=== PATIENT | female | born 1985 ===

== ENCOUNTER 2016-09-06 21:08 | Emergency (ER) | payer OTHER ==
--- NOTE | 2016-09-06 22:53 | ED NURSING NOTES ---
Clinical Report - Nurses [facility] [address] [place] [address] 09/06/2016 21:09 Patient: JOSEP PRESLEY TRIAGE Triage time 21:38 Sep 06 2016. Acuity: LEVEL 4. Chief Complaint: BACK PAIN. 21:44 09/06/16. SEPSIS SCREEN: Sepsis Screen. Negative (no infection suspected/documented). PINKY COMA SCORE: Blanchard Coma Scale: 15- eyes open spontaneously (4); best verbal response- oriented x 4 (5); best motor response- obeys commands (6). --21:44 Dinora Coombs R.N. 21:44 09/06/16. BP: 145/104. HR: 108. RR: 18. O2 saturation: 98%. Temp: 98.4 F. Pain level now 8/10. --21:44 Dinora Coombs R.N. Weight: 95.2 kg stated. Height/Length: 67 inches Per Patient. BMI: 32.9. --21:38 Dinora Coombs R.N. Medications Lantus. --21:39 Dinora Comobs R.N. NovoLog. --21:39 Dinora Coombs R.N. Metformin. --21:39 Dinora Coombs R.N. Gabapentin. --21:39 Dinora Coombs R.N. Medication/allergy information source: the patient. --21:44 Dinora Coombs R.N. Allergies Darvcet. --21:40 Dinora Coombs R.N. Morphine and Related. --21:40 Dinora Coombs R.N. History Arrived by private vehicle. Historian: patient. Accompanied by friend. This started yesterday. ( states slipped on the ice yesterday and injured her mid to lower back, all the way across her back). She has had tingling, (outsides of both legs, left leg is chronic). No history of recent trauma. ( no problems with bowel or bladder control). No numbness, weakness or trouble walking. Treatment JEWELRY MANAGER: Took Tylenol. (1000 mg 6 hr,). PAST MEDICAL HX: Last normal menstrual period- 2 weeks ago. SOCIAL HX: Never smoker. No alcohol use or drug use. No infectious disease exposure. ABUSE ASSESSMENT: No report of abuse. SELF HARM ASSESSMENT: A self harm assessment was performed. The patient answered "no" to the question "Have you recently felt down, depressed, or hopeless?", "Have you noticed less interest or pleasure in doing things?", "Do you have thoughts of harming or killing yourself?", "Are you here because you tried to hurt yourself?", "Have you ever tried to hurt yourself before today?", "Have you recently had thoughts about harming or killing others?" and "Do you have any dangerous items in your possession?". FALL RISK ASSESSMENT: Fall risk assessment completed. No fall risk identified. NUTRITIONAL RISK ASSESSMENT: The nutritional risk assessment revealed no deficiencies. FUNCTIONAL ASSESSMENT: Functional assessment: no impairments noted. LEARNING NEEDS ASSESSMENT: The learning needs assessment revealed no barriers. SKIN INTEGRITY ASSESSMENT: Skin integrity risk assessment completed. No skin integrity risk identified. --21:44 Dinora Coombs R.N. PROBLEMS: Vomiting. Polycystic Ovary Disease. Diabetes Mellitus. Abdominal Pain. --21:40 Dinora Coombs R.N. ADDITIONAL SURGERIES: Hip Surgery. Wrist surgery. --21:40 Dinora Coombs R.N. Back Surgery. --21:41 Dinora Coombs R.N. Unspecified abdominal surgery. --21:42 Dinora Coombs R.N. Interventions ID band on patient. --21:44 Dinora Coombs R.N. PHYSICAL ASSESSMENT 21:48 09/06/16. Ambulatory to room. GENERAL / NEURO / PSYCH: Alert. Oriented X 4. Appears in pain. No weakness. RESPIRATORY: Breath sounds within normal limits. CVS: Capillary refill less than 2 seconds. GI / : Abdomen soft. No CVA tenderness. EXTREMITIES: Sensation intact in extremities. ROM of extremities within normal limits. ( states tingling in both legs, left more as chronic). BACK: Normal inspection of the neck and back. No neck or back tenderness. ROM of neck and back within normal limits. No vertebral point tenderness. Soft tissue tenderness. --21:48 Dinora Coombs R.N. NURSING PROGRESS NOTES 21:44 09/06/16. The initial plan of care for this patient includes an assessment with efforts to address the presence of pain; impairment of the musculoskeletal system. This plan of care was discussed with the patient. Patient gowned. Reassurance given. Patient identifiers checked. Call light placed in reach. Side rails up x 1. Bed placed in lowest position. Brakes of bed on. Patient ready for evaluation. --21:44 Dinora Coombs R.N. 22:22 09/06/2016 Zofran ODT (Ondansetron) PO Oral Disintegrating Tablets 4 mg given. Allergies verified and confirmed 5 rights. --22:24 Dinora Coombs R.N. 22:22 09/06/2016 Toradol (Ketorolac Tromethamine) IM 60 mg given. Given in the right gluteus catalina. Allergies verified and confirmed 5 rights. --22:24 Dinora Coombs R.N. 23:23. The patient is calm and resting quietly. GENERAL / NEURO / PSYCH: Alert. Oriented X 4. RESPIRATORY: No respiratory distress. SKIN: Skin is warm and dry. Skin color within normal limits. --23:25 Star Reddy R.N. DISPOSITION / DISCHARGE Departure time: 23:25. Condition at departure: stable. ( LASTING MACHINE OPERATOR HAND METHOD Sushma notified of pt vitals prior to discharge). No learning barriers present. Discharge instructions provided and reviewed with the patient. Patient verbalized understanding. Written instructions provided in Georgian. The patient was discharged home and accompanied by semiconductor wafers tester. She left the Emergency Department ambulatory and via private vehicle. Blow Torch Burner driving. FALL RISK ASSESSMENT: Fall risk assessment completed. No fall risk identified. --23:25 Star Reddy R.N. 23:06 02/05/17. BP: 151/97. HR: 110. RR: 17. O2 saturation: 98% on room air. Pain level now: 01/09. --23:25 Star Reddy R.N. Locked/Released at 09/07/2016 0:55 by Star Reddy R.N.
--- NOTE | 2016-09-06 22:53 | ED ORDER SUMMARY ---
..... Patient: JOSEP PRESLEY OrderSheet [facility] VisitID: [id number] [address] [place] [address] 31y, F Registration Date/Time: 09/06/2016 ORDER SHEET Weight: 95.2 kg (stated) Allergies: Darvcet, Morphine and Related GENERAL ORDERS: MEDICATION ORDERS: Toradol IM 60 mg (NOW) (22:13 09/06/2016 HBivens A.R.N.P.) (22:24 EInderbitzen R.N.) Zofran ODT PO 4 mg (NOW) (22:13 09/06/2016 HBivens A.R.N.P.) (22:24 EInderbitzen R.N.) IV FLUIDS: ORDER SHEET NOTES: [Electronically signed by Crys OrdazR.N.P. (00:11 09/07/2016)] [Electronically signed by Star Reddy R.N. (00:54 09/07/2016)] [Electronically locked/signed by Star Reddy R.N. (00:54 09/07/2016)]
--- NOTE | 2016-09-06 22:53 | ED CLINICAL REPORT ---
Clinical Report - Physicians/Mid Levels [facility] [address] [place] [address] 09/06/2016 21:09 Patient: JOSEP PRESLEY Time Seen: 21:45; initial patient contact, initial documentation, patient care assumed. Arrived- By private vehicle. Historian- patient. HISTORY OF PRESENT ILLNESS Chief Complaint: BACK PAIN. Modifying factors- worsened by sitting. (made better by warm showers). It is described as being moderate in degree and in the area of the lower thoracic spine and lower lumbar spine and radiating to the right hip and thigh and to the left hip and thigh. The quality is noted to be "pain". Onset was yesterday and it is still present. No bladder dysfunction, bowel dysfunction, sensory loss or motor loss. Patient notes the possibility of an injury but denies injury to the head or neck. Mechanism of injury- she fell while walking. Similar symptoms previously: Chronically. Recent medical care: Not recently seen/assessed. REVIEW OF SYSTEMS No fever, difficulty with urination, urinary frequency, hematuria or difficulty breathing. No chest pain, abdominal pain, vomiting or diarrhea. All systems otherwise negative, except as recorded above. PAST HISTORY See nurses notes. The patient has had prior back pain. PROBLEMS: Vomiting. Polycystic Ovary Disease. Diabetes Mellitus. Abdominal Pain. --21:40 Dinora Coombs R.N. ADDITIONAL SURGERIES: Hip Surgery. Wrist surgery. --21:40 Dinora Coombs R.N. Back Surgery. --21:41 Dinora Coombs RMarioN. Unspecified abdominal surgery. --21:42 Dinora Coombs R.N. SOCIAL HISTORY Never smoker. No alcohol use or drug use. No recent travel. Is a local resident. FAMILY HISTORY Negative. ADDITIONAL NOTES The nursing notes have been reviewed with agreement regarding the chief complaint, HPI, ROS, PMH and patient medications and allergies. PHYSICAL EXAM Vital Signs: 09/06/2016 21:44 BP: 145/104. HR: 108. RR: 18. O2 saturation: 98%. Temp: 98.4 F. Have been reviewed as abnormal and appear to be correct. Hypertensive. Tachycardic. Respiratory rate normal. Temperature normal. Oxygen saturation normal. Appearance: Alert. No acute distress. Neck: Normal inspection. Neck nontender. Painless ROM. CVS: Heart sounds normal. Pulses normal. Respiratory: No respiratory distress. Breath sounds normal. Abdomen: No visible injury. Soft and nontender. Back: Normal inspection. No tenderness. Painless ROM. Skin: Skin warm and dry. Normal skin color. No rash. Normal skin turgor. Extremities: Extremities exhibit normal ROM. Extremities nontender. Neuro: Oriented X 3. Mood/affect normal. No motor deficit. No sensory deficit. PROGRESS AND PROCEDURES Course of Care: 21:47 09/06/16. pt has radha for narcs and frequent er visits #14, last rx hydrocodone #10 on 07/07, see report for full details SPECIAL EDUCATION PROFESSIONAL student Donny doing exam and assisting with pt care with my student. Patient counseled in person regarding the patient's stable condition and diagnosis. 22:53. Differential Diagnosis: I considered Musculo-skeletal strain, contusion, disk protrusion, vertebral fracture, facet syndrome, sacroiliac joint strain, sciatica, osteoarthritis, lumbar spondylosis, spinal stenosis, ankylosing spondylitis and sacroiliac joint inflammation as a possible cause of back pain in this patient. This is a partial list of diagnoses considered. Above considerations are based on history and physical exam. Differential diagnosis was discussed with patient. Disposition: Discharged home in good and improved condition (22:53). Condition: good and stable. CLINICAL IMPRESSION Muscle strain of the low back. Fall on same level by slipping. INSTRUCTIONS Warnings: GENERAL WARNINGS: Return or contact your physician immediately if your condition worsens or changes unexpectedly, if not improving as expected, or if other problems arise. SPECIFICALLY, return if you develop incontinence of feces (loss of bowel control) or urine (loss of bladder control). Prescription Medications: Naproxen 500 mg tablets: take 1 orally every 12 hours as needed for pain. Dispense twenty (20). No refills. Flexeril 10 mg: Take 1 orally every 8 hours as needed for muscle spasm. Dispense twenty (20). No refills. Substitution is permissible. Follow-up: Follow up with your doctor in about one week as needed. Call for an appointment. Summary of care provided to patient. Understanding of the discharge instructions verbalized by patient. (Electronically signed by Crys Ordaz A.R.N.P. 09/07/2016 0:11)
--- NOTE | 2016-09-06 22:53 | ED NURSING NOTES ---
Clinical Report - Nurses Merged With [facility] [address] [place] [address] 09/06/2016 21:09 Patient: JOSEP PRESLEY TRIAGE Triage time 21:38 Sep 06 2016. Acuity: LEVEL 4. Chief Complaint: BACK PAIN. 21:44 09/06/16. SEPSIS SCREEN: Sepsis Screen. Negative (no infection suspected/documented). PINKY COMA SCORE: Jelm Coma Scale: 15- eyes open spontaneously (4); best verbal response- oriented x 4 (5); best motor response- obeys commands (6). --21:44 Dinora Coombs R.N. 21:44 09/06/16. BP: 145/104. HR: 108. RR: 18. O2 saturation: 98%. Temp: 98.4 F. Pain level now 8/10. --21:44 Dinora Coombs R.N. Weight: 95.2 kg stated. Height/Length: 67 inches Per Patient. BMI: 32.9. --21:38 Dinora Coombs R.N. Medications Lantus. --21:39 Dinora Coombs R.N. NovoLog. --21:39 Dinora Coombs R.N. Metformin. --21:39 Dinora Coombs R.N. Gabapentin. --21:39 Dinora Coombs R.N. Medication/allergy information source: the patient. --21:44 Dinora Coombs R.N. Allergies Darvcet. --21:40 Dinora Coombs R.N. Morphine and Related. --21:40 Dinora Coombs R.N. History Arrived by private vehicle. Historian: patient. Accompanied by friend. This started yesterday. ( states slipped on the ice yesterday and injured her mid to lower back, all the way across her back). She has had tingling, (outsides of both legs, left leg is chronic). No history of recent trauma. ( no problems with bowel or bladder control). No numbness, weakness or trouble walking. Treatment VETERINARIAN ASSISTANT: Took Tylenol. (1000 mg 6 hr,). PAST MEDICAL HX: Last normal menstrual period- 2 weeks ago. SOCIAL HX: Never smoker. No alcohol use or drug use. No infectious disease exposure. ABUSE ASSESSMENT: No report of abuse. SELF HARM ASSESSMENT: A self harm assessment was performed. The patient answered "no" to the question "Have you recently felt down, depressed, or hopeless?", "Have you noticed less interest or pleasure in doing things?", "Do you have thoughts of harming or killing yourself?", "Are you here because you tried to hurt yourself?", "Have you ever tried to hurt yourself before today?", "Have you recently had thoughts about harming or killing others?" and "Do you have any dangerous items in your possession?". FALL RISK ASSESSMENT: Fall risk assessment completed. No fall risk identified. NUTRITIONAL RISK ASSESSMENT: The nutritional risk assessment revealed no deficiencies. FUNCTIONAL ASSESSMENT: Functional assessment: no impairments noted. LEARNING NEEDS ASSESSMENT: The learning needs assessment revealed no barriers. SKIN INTEGRITY ASSESSMENT: Skin integrity risk assessment completed. No skin integrity risk identified. --21:44 Dinora Coombs R.N. PROBLEMS: Vomiting. Polycystic Ovary Disease. Diabetes Mellitus. Abdominal Pain. --21:40 Dinora Coombs R.N. ADDITIONAL SURGERIES: Hip Surgery. Wrist surgery. --21:40 Dinora Coombs R.N. Back Surgery. --21:41 Dinora Coombs R.N. Unspecified abdominal surgery. --21:42 Dinora Coombs R.N. Interventions ID band on patient. --21:44 Dinora Coombs R.N. PHYSICAL ASSESSMENT 21:48 09/06/16. Ambulatory to room. GENERAL / NEURO / PSYCH: Alert. Oriented X 4. Appears in pain. No weakness. RESPIRATORY: Breath sounds within normal limits. CVS: Capillary refill less than 2 seconds. GI / : Abdomen soft. No CVA tenderness. EXTREMITIES: Sensation intact in extremities. ROM of extremities within normal limits. ( states tingling in both legs, left more as chronic). BACK: Normal inspection of the neck and back. No neck or back tenderness. ROM of neck and back within normal limits. No vertebral point tenderness. Soft tissue tenderness. --21:48 Dinora Coombs R.N. NURSING PROGRESS NOTES 21:44 09/06/16. The initial plan of care for this patient includes an assessment with efforts to address the presence of pain; impairment of the musculoskeletal system. This plan of care was discussed with the patient. Patient gowned. Reassurance given. Patient identifiers checked. Call light placed in reach. Side rails up x 1. Bed placed in lowest position. Brakes of bed on. Patient ready for evaluation. --21:44 Dinora Coombs R.N. 22:22 09/06/2016 Zofran ODT (Ondansetron) PO Oral Disintegrating Tablets 4 mg given. Allergies verified and confirmed 5 rights. --22:24 Dinora Coombs R.N. 22:22 09/06/2016 Toradol (Ketorolac Tromethamine) IM 60 mg given. Given in the right gluteus catalina. Allergies verified and confirmed 5 rights. --22:24 Dinora Coombs R.N. 23:23. The patient is calm and resting quietly. GENERAL / NEURO / PSYCH: Alert. Oriented X 4. RESPIRATORY: No respiratory distress. SKIN: Skin is warm and dry. Skin color within normal limits. --23:25 Star Reddy R.N. DISPOSITION / DISCHARGE Departure time: 23:25. Condition at departure: stable. ( CONSULTING SALES EXECUTIVE Sushma notified of pt vitals prior to discharge). No learning barriers present. Discharge instructions provided and reviewed with the patient. Patient verbalized understanding. Written instructions provided in Estonian. The patient was discharged home and accompanied by print inspector. She left the Emergency Department ambulatory and via private vehicle. Quality Control Tester driving. FALL RISK ASSESSMENT: Fall risk assessment completed. No fall risk identified. --23:25 Star Reddy R.N. 23:06 02/05/17. BP: 151/97. HR: 110. RR: 17. O2 saturation: 98% on room air. Pain level now: 01/09. --23:25 Star Reddy R.N. Locked/Released at 09/07/2016 0:55 by Star Reddy R.N.
--- NOTE | 2016-09-06 22:53 | ED ORDER SUMMARY ---
..... Patient: JOSEP PRESLEY OrderSheet [facility] VisitID: [id number] [address] [place] [address] 31y, F Registration Date/Time: 09/06/2016 ORDER SHEET Weight: 95.2 kg (stated) Allergies: Darvcet, Morphine and Related GENERAL ORDERS: MEDICATION ORDERS: Toradol IM 60 mg (NOW) (22:13 09/06/2016 HBivens A.R.N.P.) (22:24 EInderbitzen R.N.) Zofran ODT PO 4 mg (NOW) (22:13 09/06/2016 HBivens A.R.N.P.) (22:24 EInderbitzen R.N.) IV FLUIDS: ORDER SHEET NOTES: [Electronically signed by Crys OrdazR.N.P. (00:11 09/07/2016)] [Electronically signed by Star Reddy R.N. (00:54 09/07/2016)] [Electronically locked/signed by Star Reddy R.N. (00:54 09/07/2016)]
--- NOTE | 2016-09-07 00:55 | ED MAR SUMMARY ---
..... Medication Administration Record [facility] [address] [place] [address] Patient: JOSEP PRESLEY Visit ID: [id number] 31y, F Weight: 95.2 kg Height/Length: 67 in BMI: 32.9 ALLERGIES: Morphine and Related, Darvcet Given 22:09/06/2016 Dinora Coombs R.N. Medication Administered: TORADOL [IM] (KETOROLAC TROMETHAMINE), Dose: 60 mg IM. Medication Ordered: Toradol IM 60 mg (NOW). Given 22:09/06/2016 Dinora Coombs RMarioNMario Medication Administered: ZOFRAN ODT [PO] (ONDANSETRON), Dose: 4 mg Oral Disintegrating Tablets PO. Medication Ordered: Zofran ODT PO 4 mg (NOW).
--- NOTE | 2016-09-07 00:55 | ED MED RECONCILIATION SUMMARY ---
Patient: JOSEP PRESLEY Medication Reconciliation Report [facility] VisitID: [id number] [address] [place] [address] 31y, F Registration Date/Time: 09/06/2016 Weight: 95.2 kg Height/Length: 67 in. BMI: 32.9 ALLERGIES: Darvcet, Morphine and Related The patient's Home Medications are listed below: THE FOLLOWING MEDICATIONS NEED TO BE RECONCILED: Gabapentin Lantus Metformin NovoLog The source(s) of the original Home Medication information: patient The following Medications were given to the patient in the Emergency Department: Zofran ODT [PO] PO 4 mg, administered: 09/06/2016 10:22:00 PM Toradol [IM] IM 60 mg, administered: 09/06/2016 10:22:00 PM The following Medications were prescribed to the patient: Naproxen 500 mg tablets: take 1 orally every 12 hours as needed for pain. Dispense twenty (20). No refills. -- Crys Ordaz A.R.N.P. Flexeril 10 mg: Take 1 orally every 8 hours as needed for muscle spasm. Dispense twenty (20). No refills. Substitution is permissible. -- Crys Ordaz A.R.N.P.
--- NOTE | 2016-09-07 00:55 | ED MAR SUMMARY ---
..... Medication Administration Record [facility] [address] [place] [address] Patient: JOSEP PRESLEY Visit ID: [id number] 31y, F Weight: 95.2 kg Height/Length: 67 in BMI: 32.9 ALLERGIES: Morphine and Related, Darvcet Given 22:09/06/2016 Dinora Coombs R.N. Medication Administered: TORADOL [IM] (KETOROLAC TROMETHAMINE), Dose: 60 mg IM. Medication Ordered: Toradol IM 60 mg (NOW). Given 22:09/06/2016 Dinora Coombs RMarioNMario Medication Administered: ZOFRAN ODT [PO] (ONDANSETRON), Dose: 4 mg Oral Disintegrating Tablets PO. Medication Ordered: Zofran ODT PO 4 mg (NOW).
--- NOTE | 2016-09-07 00:55 | ED DISCHARGE INSTRUCTIONS ---
Patient: JOSEP PRESLEY General Instructions [facility] VisitID: [id number] [place] [address] 31y, F Registration Date/Time: 09/06/2016 Muscle strain of the low back. Fall on same level by slipping. INSTRUCTIONS Warnings: GENERAL WARNINGS: Return or contact your physician immediately if your condition worsens or changes unexpectedly, if not improving as expected, or if other problems arise. SPECIFICALLY, return if you develop incontinence of feces (loss of bowel control) or urine (loss of bladder control). Prescription Medications: Naproxen 500 mg tablets: take 1 orally every 12 hours as needed for pain. Dispense twenty (20). No refills. Flexeril 10 mg: Take 1 orally every 8 hours as needed for muscle spasm. Dispense twenty (20). No refills. Substitution is permissible. Follow-up: Follow up with your doctor in about one week as needed. Call for an appointment. Summary of care provided to patient. Understanding of the discharge instructions verbalized by patient. ADDITIONAL INFORMATION Mechanical Fall You have had a fall today. It appears that the cause is mechanical. That means that you slipped, tripped or lost your balance. If your fall had been due to fainting or a seizure, further tests would be required. Home Care: Rest today and resume your normal activities when you are feeling back to normal. If you were injured during the fall, follow the advice from your doctor regarding care of your injury. You may use acetaminophen (Tylenol) or ibuprofen (Motrin, Advil) to control pain, unless another pain medicine was prescribed. [NOTE: If you have chronic liver or kidney disease or ever had a stomach ulcer or GI bleeding, talk with your doctor before using these medicines.] Fall Prevention: Was there anything that caused your fall that can be fixed, removed, or replaced? Make your home safe by keeping walkways clear of objects you may trip over. Use non-slip pads under rugs. Do not walk in poorly lit areas. Do not stand on chairs or wobbly ladders. Use caution when reaching overhead or looking upward. This position can cause a loss of balance. Be sure your shoes fit properly, have non-slip bottoms and are in good condition. Be cautious when going up and down curbs, and walking on uneven sidewalks. If your balance is poor, consider using a cane or walker. Stay as active as you can. Balance, flexibility, strength, and endurance all come from exercise. They all play a role in preventing falls. Follow Up with your doctor or as advised by our staff. Get Prompt Medical Attention if any of the following occur: Repeated mechanical falls, or unexplained falls Dizziness, fainting or seizure Severe headache Chest pain or shortness of breath Palpitations (very rapid or very slow or irregular heartbeat) Blood in vomit, stools (black or red color) Weakness of an arm or leg or one side of the face Difficulty with speech or vision Back Pain [Acute Or Chronic] Back pain is usually caused by an injury to the muscles or ligaments of the spine. Sometimes the disks that separate each bone in the spine may bulge and cause pain by pressing on a nearby nerve. Back pain may also appear after a sudden twisting/bending force (such as in a car accident), after a simple awkward movement, or lifting something heavy with poor body positioning. In either case, muscle spasm is often present and adds to the pain. Acute back pain usually gets better in one to two weeks. Back pain related to disk disease, arthritis in the spinal joints or spinal stenosis (narrowing of the spinal canal) can become chronic and last for months or years. Unless you had a physical injury (for example, a car accident or fall) X-rays are usually not ordered for the initial evaluation of back pain. If pain continues and does not respond to medical treatment, x-rays and other tests may be performed at a later time. Home Care: You may need to stay in bed the first few days. But, as soon as possible, begin sitting or walking to avoid problems with prolonged bed rest (muscle weakness, worsening back stiffness and pain, blood clots in the legs). When in bed, try to find a position of comfort. A firm mattress is best. Try lying flat on your back with pillows under your knees. You can also try lying on your side with your knees bent up towards your chest and a pillow between your knees. Avoid prolonged sitting. This puts more stress on the lower back than standing or walking. During the first two days after injury, apply an ICE PACK to the painful area for 20 minutes every 2-4 hours. This will reduce swelling and pain. HEAT (hot shower, hot bath or heating pad) works well for muscle spasm. You can start with ice, then switch to heat after two days. Some patients feel best alternating ice and heat treatments. Use the one method that feels the best to you. You may use acetaminophen (Tylenol) or ibuprofen (Motrin, Advil) to control pain, unless another pain medicine was prescribed. [NOTE: If you have chronic liver or kidney disease or ever had a stomach ulcer or GI bleeding, talk with your doctor before using these medicines.] Be aware of safe lifting methods and do not lift anything over 15 pounds until all the pain is gone. Follow Up with your doctor or this facility if your symptoms do not start to improve after one week. Physical therapy may be needed. [NOTE: If X-rays were taken, they will be reviewed by a radiologist. You will be notified of any new findings that may affect your care.] Get Prompt Medical Attention if any of the following occur: Pain becomes worse or spreads to your legs Weakness or numbness in one or both legs Loss of bowel or bladder control Numbness in the groin or genital area Naproxen Sodium Oral tablet What is this medicine? NAPROXEN (na PROX en) is a non-steroidal anti-inflammatory drug (NSAID). It is used to reduce swelling and to treat pain. This medicine may be used for dental pain, headache, or painful monthly periods. It is also used for painful joint and muscular problems such as arthritis, tendinitis, bursitis, and gout. How should I use this medicine? Take this medicine by mouth with a glass of water. Follow the directions on the prescription label. Take it with food if your stomach gets upset. Try to not lie down for at least 10 minutes after you take it. Take your medicine at regular intervals. Do not take your medicine more often than directed. Long-term, continuous use may increase the risk of heart attack or stroke. A special MedGuide will be given to you by the pharmacist with each prescription and refill. Be sure to read this information carefully each time. Talk to your resource conservation manager regarding the use of this medicine in children. Special care may be needed. What side effects may I notice from receiving this medicine? Side effects that you should report to your doctor or health insurance healthcare representative as soon as possible: black or bloody stools, blood in the urine or vomit blurred vision chest pain difficulty breathing or wheezing nausea or vomiting severe stomach pain skin rash, skin redness, blistering or peeling skin, hives, or itching slurred speech or weakness on one side of the body swelling of eyelids, throat, lips unexplained weight gain or swelling unusually weak or tired yellowing of eyes or skin Side effects that usually do not require medical attention (report to your doctor or health insurance healthcare representative if they continue or are bothersome): constipation headache heartburn What may interact with this medicine? alcohol aspirin cidofovir diuretics lithium methotrexate other drugs for inflammation like ketorolac or prednisone pemetrexed probenecid warfarin What if I miss a dose? If you miss a dose, take it as soon as you can. If it is almost time for your next dose, take only that dose. Do not take double or extra doses. Where should I keep my medicine? Keep out of the reach of children. Store at room temperature between 15 and 30 degrees C (59 and 86 degrees F). Keep container tightly closed. Throw away any unused medicine after the expiration date. What should I tell my health care provider before I take this medicine? They need to know if you have any of these conditions: asthma cigarette smoker drink more than 3 alcohol containing drinks a day heart disease or circulation problems such as heart failure or leg edema (fluid retention) high blood pressure kidney disease liver disease stomach bleeding or ulcers an unusual or allergic reaction to naproxen, aspirin, other NSAIDs, other medicines, foods, dyes, or preservatives or trying to get breast-feeding What should I watch for while using this medicine? Tell your doctor or health insurance healthcare representative if your pain does not get better. Talk to your doctor before taking another medicine for pain. Do not treat yourself. This medicine does not prevent heart attack or stroke. In fact, this medicine may increase the chance of a heart attack or stroke. The chance may increase with longer use of this medicine and in people who have heart disease. If you take aspirin to prevent heart attack or stroke, talk with your doctor or health insurance healthcare representative. Do not take other medicines that contain aspirin, ibuprofen, or naproxen with this medicine. Side effects such as stomach upset, nausea, or ulcers may be more likely to occur. Many medicines available without a prescription should not be taken with this medicine. This medicine can cause ulcers and bleeding in the stomach and intestines at any time during treatment. Do not smoke cigarettes or drink alcohol. These increase irritation to your stomach and can make it more susceptible to damage from this medicine. Ulcers and bleeding can happen without warning symptoms and can cause . You may get drowsy or dizzy. Do not drive, use machinery, or do anything that needs mental alertness until you know how this medicine affects you. Do not stand or sit up quickly, especially if you are an older patient. This reduces the risk of dizzy or fainting spells. This medicine can cause you to bleed more easily. Try to avoid damage to your teeth and gums when you brush or floss your teeth. Cyclobenzaprine Hydrochloride Oral tablet What is this medicine? CYCLOBENZAPRINE (arsalan sousalili MAXIM martell) is a muscle relaxer. It is used to treat muscle pain, spasms, and stiffness. How should I use this medicine? Take this medicine by mouth with a glass of water. Follow the directions on the prescription label. If this medicine upsets your stomach, take it with food or milk. Take your medicine at regular intervals. Do not take it more often than directed. Talk to your resource conservation manager regarding the use of this medicine in children. Special care may be needed. What side effects may I notice from receiving this medicine? Side effects that you should report to your doctor or health insurance healthcare representative as soon as possible: allergic reactions like skin rash, itching or hives, swelling of the face, lips, or tongue chest pain fast heartbeat hallucinations seizures vomiting Side effects that usually do not require medical attention (report to your doctor or health insurance healthcare representative if they continue or are bothersome): headache What may interact with this medicine? Do not take this medicine with any of the following medications: cisapride droperidol flecainide grepafloxacin halofantrine levomethadyl MAOIs like Carbex, Eldepryl, Marplan, Nardil, and Parnate nilotinib pimozide probucol sertindole This medicine may also interact with the following medications: abarelix alcohol contrast dyes dolasetron guanethidine medicines for cancer medicines for depression, anxiety, or psychotic disturbances medicines to treat an irregular heartbeat medicines used for sleep or numbness during surgery or procedure methadone octreotide ondansetron palonosetron phenothiazines like chlorpromazine, mesoridazine, prochlorperazine, thioridazine some medicines for infection like alfuzosin, chloroquine, clarithromycin, levofloxacin, mefloquine, pentamidine, troleandomycin tramadol vardenafil What if I miss a dose? If you miss a dose, take it as soon as you can. If it is almost time for your next dose, take only that dose. Do not take double or extra doses. Where should I keep my medicine? Keep out of the reach of children. Store at room temperature between 15 and 30 degrees C (59 and 86 degrees F). Keep container tightly closed. Throw away any unused medicine after the expiration date. What should I tell my health care provider before I take this medicine? They need to know if you have any of these conditions: heart disease, irregular heartbeat, or previous heart attack liver disease thyroid problem an unusual or allergic reaction to cyclobenzaprine, tricyclic antidepressants, lactose, other medicines, foods, dyes, or preservatives or trying to get breast-feeding What should I watch for while using this medicine? Check with your doctor or health insurance healthcare representative if your condition does not improve within 1 to 3 weeks. You may get drowsy or dizzy when you first start taking the medicine or change doses. Do not drive, use machinery, or do anything that may be dangerous until you know how the medicine affects you. Stand or sit up slowly. Your mouth may get dry. Drinking water, chewing sugarless gum, or sucking on hard candy may help. You have been given the following additional information: Fall, Mechanical Back Pain (Acute Or Chronic) Naproxen Sodium Oral tablet Cyclobenzaprine Hydrochloride Oral tablet (Electronically signed by Crys Ordaz A.R.N.P. 09/07/2016 0:11)
--- NOTE | 2016-09-07 00:55 | ED MED RECONCILIATION SUMMARY ---
Patient: JOSEP PRESLEY Medication Reconciliation Report [facility] VisitID: [id number] [address] [place] [address] 31y, F Registration Date/Time: 09/06/2016 Weight: 95.2 kg Height/Length: 67 in. BMI: 32.9 ALLERGIES: Darvcet, Morphine and Related The patient's Home Medications are listed below: THE FOLLOWING MEDICATIONS NEED TO BE RECONCILED: Gabapentin Lantus Metformin NovoLog The source(s) of the original Home Medication information: patient The following Medications were given to the patient in the Emergency Department: Zofran ODT [PO] PO 4 mg, administered: 09/06/2016 10:22:00 PM Toradol [IM] IM 60 mg, administered: 09/06/2016 10:22:00 PM The following Medications were prescribed to the patient: Naproxen 500 mg tablets: take 1 orally every 12 hours as needed for pain. Dispense twenty (20). No refills. -- Crys Ordaz A.R.N.P. Flexeril 10 mg: Take 1 orally every 8 hours as needed for muscle spasm. Dispense twenty (20). No refills. Substitution is permissible. -- Crys Ordaz A.R.N.P.
== END 2016-09-06 23:26 | disposition home or self-care (01) ==
LOC: ED SRH 21:08
DX: S39.012A Strain of muscle, fascia and tendon of lower back, initial encounter (principal); W00.0XXA Fall on same level due to ice and snow, initial encounter; Y93.01 Activity, walking, marching and hiking; Y93.9 Activity, unspecified; Y99.9 Unspecified external cause status; E11.9 Type 2 diabetes mellitus without complications